=== PATIENT | female | born 1995 | race Hispanic/Latino ===

== ENCOUNTER 2018-01-10 19:24 | Outpatient (CLI) | payer MEDICAID ==
[2018-01-10 19:51] VITALS: BP 118/72
== END 2018-01-10 21:30 | disposition home or self-care (01) ==
LOC: TRG 19:24
PROVIDERS: ATTEND Obstetrics & Gynecology
DX: O47.1 False labor at or after 37 completed weeks of gestation (principal); Z3A.37 37 weeks gestation of pregnancy
CPT/HCPCS: 59025

== ENCOUNTER 2018-01-25 21:41 | Inpatient (IN) | payer MEDICAID ==
[2018-01-26] MEDS ORDERED: SUBLIMAZE IV PRN (00:10)
[2018-01-26] MEDS ORDERED: POLYCILLIN/NS 2 GM/100 ML 2 GM/100 ML BAG IV ONE (00:10)
[2018-01-26] MEDS ORDERED: ePHEDrine SULFATE IV PRN (00:10)
[2018-01-26] MEDS ORDERED: MINERAL OIL PO PRN (00:10)
[2018-01-26] MEDS ORDERED: BRETHINE IVP PRN (00:10)
[2018-01-26] MEDS ORDERED: XYLOCAINE 2% INFILTRATI ONE (00:10)
[2018-01-26] MEDS ORDERED: BRETHINE SUB-Q PRN (00:10)
[2018-01-26 00:40] LABS: Hematocrit 30.4 % (30.3-42.9); Hemoglobin 9.5 gm/dl (10.1-14.3); Mean Corpuscular HGB Conc 31 % (30-34); Mean Corpuscular Volume 72 fl (79-97); Platelet Count 197 K/mm3 (140-440); Red Blood Count 4.24 M/mm3 (3.65-5.03); Red Cell Distribution Width 17.1 % (13.2-15.2)
[2018-01-26] MEDS: LACTATED RINGERS 1,000 ML IV SCH ×4 (00:40→03:57)
[2018-01-26 00:42] LABS: Mean Corpuscular Hemoglobin 22 pg (28-32)
[2018-01-26] MEDS ORDERED: PITOCin/NS 20 UNIT/1000ML DRIP 20 UNITS/1,000 ML BAG IV SCH (01:00)
[2018-01-26] MEDS ORDERED: NARCAN 2 MG/2 ML IV PRN (02:10)
--- NOTE | 2018-01-26 02:10 | Anesthesia Consultation ---
Anesthesia Consult and Med Hx Date of service: 01/26/18 - Airway Anesthetic Teeth Evaluation: Good ROM Head & Neck: Adequate Mental/Hyoid Distance: Adequate Mallampati Class: Class I Intubation Access Assessment: Probably Good - Pulmonary Exam CTA: Yes - Cardiac Exam Cardiac Exam: RRR - Pre-Operative Health Status ASA Pre-Surgery Classification: ASA2 Proposed Anesthetic Plan: Epidural - Pulmonary Hx Asthma: No COPD: No Hx Pneumonia: No - Cardiovascular System Hx Hypertension: No - Central Nervous System Hx Seizures: No Hx Psychiatric Problems: No - Endocrine Hx Renal Disease: No Hx End Stage Renal Disease: No Hx Hypothyroidism: Yes (takes synthroid) Hx Hyperthyroidism: No - Hematic Hx Anemia: No Hx Sickle Cell Disease: No - Other Systems Hx Alcohol Use: No
[2018-01-26] MEDS: ePHEDrine SULFATE IV PRN ×3 (02:30→02:34)
[2018-01-26] MEDS ORDERED: fentaNYL-BUPIV 2 MCG/ML-0.125% 200 MCG/100 ML BAG EPIDURAL SCH (03:00)
[2018-01-26] MEDS ORDERED: NEO SYNEPHRINE ONE (03:22)
[2018-01-26] MEDS ORDERED: AMPICILLIN/NS 1 GM/50 ML 1 GM/50 ML BAG IV SCH ×2 (04:11→09:00)
[2018-01-26] MEDS ORDERED: ZOFRAN IV PRN ×2 (08:30→15:15)
--- NOTE | 2018-01-26 10:45 | History and Physical Report ---
History of Present Illness Date of examination: 01/26/18 Date of admission: 01/26/18 00:20 Chief complaint: I'm in labor History of present illness: Patient is a 22 year old who presents at 39.4 weeks with EDC 01/29/18. Patient has a history of thyroid disease and has been on synthroid throughout the . She has had an otherwise uncomplicated course. She is GBS positive Past History Past Medical History: thyroid disease Past Surgical History: no surgical history Social history: - Obstetrical History Expected Date of Delivery: 01/29/18 Actual Gestation: 39 Week(s) 4 Day(s) : 2 Number of Living Children: 1 Medications and Allergies Allergies Allergy/AdvReac Type Severity Reaction Status Date / Time No Known Allergies Allergy Verified 10/22/14 11:30 Home Medications Medication Instructions Recorded Confirmed Last Taken Type Levothyroxine [Synthroid] 3 tab PO QAM 01/10/18 01/25/18 01/25/18 10:30 History Active Meds: Active Medications Fentanyl (Sublimaze) 100 mcg IV Q2H PRN PRN Reason: Labor Pain Last Admin: 01/26/18 00:40 Dose: 100 mcg Lactated Ringer's (Lactated Ringers) 1,000 mls @ 125 mls/hr IV DIRECT KRYSTAL Last Admin: 01/26/18 03:57 Dose: 125 mls/hr Oxytocin/Sodium Chloride (Pitocin/Ns 20 Unit/1000ml Drip) 20 units in 1,000 mls @ 125 mls/hr IV DIRECT KRYSTAL Fentanyl/Bupivacaine/Sodium Chlor (Fentanyl-Bupiv 2 Mcg/Ml-0.125%) 200 mcg in 100 mls @ 12 mls/hr EPIDURAL TITR KRYSTAL; Protocol Last Admin: 01/26/18 03:07 Dose: 12 mls/hr Ampicillin Sodium (Ampicillin/Ns 1 Gm/50 Ml) 1 gm in 50 mls @ 100 mls/hr IV Q4H KRYSTAL; Protocol Last Admin: 01/26/18 08:47 Dose: 100 mls/hr Mineral Oil (Mineral Oil) 30 ml PO QHS PRN PRN Reason: Constipation Naloxone HCl (Narcan 2 Mg/2 Ml) 0.2 mg IV Q5M PRN PRN Reason: Respiratory sedation Ondansetron HCl (Zofran) 4 mg IV Q4H PRN PRN Reason: Nausea And Vomiting Last Admin: 01/26/18 08:47 Dose: 4 mg Terbutaline Sulfate (Brethine) 0.25 mg SUB-Q ONCE PRN PRN Reason: Hyperstimulation/Hypertonicity Terbutaline Sulfate (Brethine) 0.25 mg IVP ONCE PRN PRN Reason: Hyperstimulation/Hypertonicity Review of Systems All systems: negative Genitourinary: contractions - Vital Signs Vital signs: Vital Signs Temp Resp 97.9 F 18 01/25/18 22:02 01/25/18 22:02 Temp Pulse Resp BP Pulse Ox 98.6 F 117 H 18 112/64 100 01/26/18 10:34 01/26/18 10:34 01/26/18 10:34 01/26/18 10:34 01/26/18 10:34 - Physical Exam Breasts: Cardiovascular: Regular rate, Normal S1, Normal S2 Lungs: Positive: Clear to auscultation, Normal air movement Abdomen: Positive: normal appearance, soft, normal bowel sounds. Negative: distention, tenderness Vulva: both: normal Vagina: Positive: normal moisture. Negative: discharge Cervix: Negative: lesion, discharge Uterus: Positive: normal size, normal contour Adnexa: both: normal Anus/Rectum: Positive: normal perianal skin, heme negative. Negative: rectal mass, hemorrhoids Extremities: Deep Tendon Reflex Grade: Normal +2 - Obstetrical Cervical Dilatation: 4 Cervical Effacement Percentage: 80 station: -2 Uterine Contraction Frequency (min): 3 Uterine Contraction Pattern: Regular Uterine Tone Measurement Phase: Resting Uterine Contraction Intensity: Strong/Firm Results Result Diagrams: 01/26/18 00:20 Abnormal lab results 01/26/18 Range/Units 00:20 WBC 12.5 H (4.5-11.0) K/mm3 Hgb 9.5 L (10.1-14.3) gm/dl MCV 72 L (79-97) fl MCH 22 L (28-32) pg RDW 17.1 H (13.2-15.2) % All other labs normal. Assessment and Plan IUP at 39.4 in active labor. Admit to L&D, Treat for GBS status. AROM when needed. anticipate
--- NOTE | 2018-01-26 11:01 | Procedure Note ---
OB Delivery Note - Delivery Date of Delivery: 01/26/18 Surgeon: EJ MCELROY Estimated blood loss: 200cc - Vaginal Delivery presentation: vertex Delivery position: OA Intrapartum events: none Delivery induction: none Delivery monitor: external FHT, external uterine Route of delivery: Delivery placenta: spontaneous Delivery cord: 3 umbilical vessels Episiotomy: none Delivery laceration: 1st degree Delivery repair: vicryl Anesthesia: epidural Delivery comments: Viable male delivered over intact perineum with spontaneous cry and placed on the maternal abdomen without nuchal cord. Weight 8 lbs. 5 oz., Apgars 8 and 9. Cord was clamped and cut when it is pulsating. Placenta was delivered spontaneously and intact with three-vessel cord. First-degree laceration repaired with 3-0 Vicryl. There was excellent hemostasis. The patient tolerated the procedure well. - Infant A at 1 minute: 9 at 5 minutes: 9 Infant Gender: Male (8 pounds 5 ounces)
[2018-01-26] MEDS ORDERED: DULCOLAX PR PRN (15:15)
[2018-01-26] MEDS ORDERED: LANSINOH TP PRN (15:15)
[2018-01-26] MEDS ORDERED: SODIUM CHLORIDE FLUSH SYRINGE 10 ML IV NR (15:15)
[2018-01-26] MEDS ORDERED: BENADRYL PO PRN (15:15)
[2018-01-26] MEDS ORDERED: PHENERGAN PR PRN (15:15)
[2018-01-26] MEDS ORDERED: PHENERGAN PO PRN (15:15)
[2018-01-26] MEDS ORDERED: TYLENOL PO PRN (15:15)
[2018-01-26] MEDS ORDERED: MILK OF MAGNESIA PO PRN (15:15)
[2018-01-26] MEDS: NORCO 5/325 PO PRN (15:30)
[2018-01-26] MEDS: MOTRIN PO SCH (15:41)
[2018-01-26] MEDS: TUCKS PAD TP PRN (15:42)
[2018-01-26] MEDS: COLACE PO SCH (22:39)
[2018-01-26 22:58] LABS: Hematocrit 26.6 % (30.3-42.9); Hemoglobin 8.5 gm/dl (10.1-14.3)
[2018-01-27] MEDS: MOTRIN PO SCH ×5 (03:09→21:21)
[2018-01-27] MEDS: COLACE PO SCH ×2 (10:18→21:21)
[2018-01-27] MEDS: PRENATAL VITAMIN PO SCH (10:18)
--- NOTE | 2018-01-27 11:45 | Progress Note ---
Assessment and Plan A/P PPD1 s/p doing well vss tolerating diet and ambulating levothyroxine continued discharged home with f/u with Dr. Blank in 4 weeks Subjective - Subjective Date of service: 01/27/18 Principal diagnosis: s/p Patient reports: appetite normal, voiding normally, pain well controlled, flatus , ambulating normally : doing well Objective - Vital Signs Latest vital signs: Vital Signs Temp Pulse Resp BP BP Pulse Ox 01/27/18 08:00 97.4 F L 79 18 109/72 01/26/18 23:51 91 H 86/41 97 01/26/18 20:25 88 20 99/63 01/26/18 13:50 98.6 F 93 H 18 113/76 01/26/18 12:40 125 H 18 115/67 01/26/18 12:25 106 H 18 106/59 01/26/18 12:10 106 H 18 115/67 01/26/18 11:50 104 H 18 113/65 Intake and Output 01/26/18 01/27/18 01/27/18 23:59 07:59 15:59 Intake Total 480 240 Balance 480 240 Intake: Oral 480 240 Other: Total, Intake Amount 240 240 # Voids Void 1 1 - Exam Breasts: Present: deferred, normal Cardiovascular: Present: Regular rate, Normal S1 Lungs: Present: Clear to auscultation, Normal air movement Abdomen: Present: normal appearance, soft, normal bowel sounds. Absent: distention, tenderness, guarding Vulva: both: normal Uterus: Present: normal, firm, fundal height below umbilicus. Absent: bogginess , tenderness Extremities: Present: normal Deep Tendon Reflex Grade: Normal +2 Incision: Present: normal - Labs Labs: Abnormal lab results 01/26/18 Range/Units 22:33 Hgb 8.5 L (10.1-14.3) gm/dl Hct 26.6 L (30.3-42.9) %
--- NOTE | 2018-01-27 11:47 | Discharge Summary ---
Providers - Providers Date of Admission: 01/26/18 00:20 Date of discharge: 01/27/18 Attending physician: EJ MCELROY Primary care physician: EJ MCELROY Hospitalization Reason for admission: active labor Delivery: Episiotomy: none Laceration: none Incision: normal Other procedures: none complications: none Discharge diagnosis: IUP at term delivered [place] baby: male Hospital course: . Routine course. Discharged home. Condition at discharge: Good Disposition: DC-01 TO HOME OR SELFCARE Plan - Discharge Medications Prescriptions: Ferrous Sulfate 325 mg PO BID #60 tablet. Ibuprofen [Motrin] 800 mg PO Q8HR PRN #40 tablet PRN Reason: Pain - Provider Discharge Summary Additional instructions: [] Smoking cessation referral if applicable(refer to patient education folder for contact #) [] Refer to [facility] Booklet Call your doctor immediately for: * Fever > 100.5 * Heavy vaginal bleeding ( >1 pad per hour) * Severe persistent headache * Shortness of breath * Reddened, hot, painful area to leg or breast * Drainage or odor from incision. * Keep incision clean and dry at all times and follow doctor's instructions regarding bathing/showering - Follow up plan Follow up: EJ MCELROY MD [Primary Care Provider] - 7 Days
[2018-01-27] MEDS: NORCO 5/325 PO PRN (21:22)
[2018-01-28] MEDS: TUCKS PAD TP PRN (00:40)
[2018-01-28] MEDS ORDERED: SYNTHROID PO SCH ×2 (06:00)
[2018-01-28] MEDS: PRENATAL VITAMIN PO SCH (10:26)
[2018-01-28] MEDS ORDERED: BOOSTRIX IM ONE (11:15)
[2018-01-28 15:40] VITALS: BP 126/80
== END 2018-01-28 12:20 | disposition home or self-care (01) | DRG 775 ==
LOC: TRG 21:41 → LD 01-26 00:20 → OB 01-26 13:48
PROVIDERS: ADMIT Obstetrics & Gynecology; ATTEND Obstetrics & Gynecology
PROC: 10E0XZZ Delivery of Products of Conception, External Approach (ICD-10-PCS; principal; 2018-01-26)
PROC: 0HQ9XZZ Repair Perineum Skin, External Approach (ICD-10-PCS; 2018-01-26)
PROC: 3E0R3BZ Introduction of Anesthetic Agent into Spinal Canal, Percutaneous Approach (ICD-10-PCS; 2018-01-26)
PROC: 00HU33Z Insertion of Infusion Device into Spinal Canal, Percutaneous Approach (ICD-10-PCS; 2018-01-26)
DX: O99.284 Endocrine, nutritional and metabolic diseases complicating childbirth (principal); O70.0 First degree perineal laceration during delivery; Z3A.39 39 weeks gestation of pregnancy; Z37.0 Single live birth; E03.9 Hypothyroidism, unspecified
CPT/HCPCS: 36415; 85014; 85018; 85027; 86592; 86850; 86900; 86901; 90715; 99211; G0463; J0290; J2370; J2405; J2590; J3010; J7120